=== PATIENT | female | born 1980 | race Caucasian/White ===

== ENCOUNTER 2019-07-16 13:17 | Emergency (ER) | payer BC, OTHER ==
[2019-07-16 14:35] LABS: Urine Blood NEGATIVE (NEG); Urine Glucose NEGATIVE (NEG); Urine Protein 1+ (NEG); Urine Specific Gravity 1.025 (1.005-1.030); Urine pH 5.5 (5.0-7.0)
[2019-07-16 14:42] LABS: Absolute Lymphocytes (CBC) 1.9 K/uL (0.7-4.9); Basophils % 0.6 % (0-1.3); Hematocrit 36.9 % (36.0-45.0); Lymphocytes % 40.1 % (15.3-44.8); MPV 8.4 fL (7.6-11.3); RBC Red Blood Cell Count 4.65 M/uL (3.86-4.86)
[2019-07-16 14:50] LABS: BUN Blood Urea Nitrogen 13 mg/dL (7-18); Bicarbonate 26 mmol/L (21-32); Glucose Level 95 mg/dL (74-106); Potassium 3.3 mmol/L (3.5-5.1); Sodium Level 139 mmol/L (136-145)
--- NOTE | 2019-07-16 14:59 | ER ---
Nurse's Notes [facility] Name: Radha Olsen Age: 39 yrs Sex: Female : 1980 Arrival Date: 07/16/2019 Time: 13:18 Bed 17 Private MD: JASON CASTILLO Diagnosis: Essential (primary) hypertension Presentation: 07/15 13:27 Chief complaint: Patient states: HTN WITH NO H/O HTN. Coronavirus screen: Proceed with bp normal triage. Ebola Screen: No symptoms or risks identified at this time. Initial Sepsis Screen: Does the patient meet any 2 criteria? No. Patient's initial sepsis screen is negative. Does the patient have a suspected source of infection? No. Patient's initial sepsis screen is negative. Risk Assessment: Do you want to hurt yourself or someone else? Patient reports no desire to harm self or others. Onset of symptoms was July 15, 2019. 13:27 Method Of Arrival: Ambulatory bp 13:27 Acuity: ADRIANNA 4 bp Triage Assessment: 13:30 General: Appears in no apparent distress. comfortable, Behavior is cooperative, bp appropriate for age, anxious. Pain: Denies pain. EENT: No deficits noted. Neuro: No deficits noted. Cardiovascular: No deficits noted. Respiratory: No deficits noted. GI: No signs and/or symptoms were reported involving the gastrointestinal system. : No signs and/or symptoms were reported regarding the genitourinary system. Derm: No deficits noted. Musculoskeletal: No deficits noted. Historical: - Allergies: 13:35 No Known Allergies; bp - Home Meds: 13:35 CONTROL PILLS [Active]; bp - PMHx: 13:35 PCOS; Anemia; bp - PSHx: 13:35 ; bp - Immunization history:: Adult Immunizations up to date. - Social history:: Smoking status: Patient denies any tobacco usage or history of. Screenin:30 Abuse screen: Denies threats or abuse. Denies injuries from another. Nutritional bp screening: No deficits noted. Tuberculosis screening: No symptoms or risk factors identified. Fall Risk None identified. Assessment: 13:30 General: SEE TRIAGE NOTE. bp 14:30 Reassessment: ALL CURRENT ORDERS COMPLETED. DISPO PENDING. bp 15:04 Reassessment: PT D/C HOME AMBULATORY, DX WITH HTN. bp Vital Signs: 13:27 BP 182 / 95 LA (auto/reg); Pulse 88; Resp 18; Temp 98.4(TE); Pulse Ox 98% on R/A; jp3 Weight 92.53 kg (R); Height 5 ft. 7 in. (170.18 cm) (R); Pain 3/10; 14:30 BP 138 / 93; Pulse 76; Resp 16; Pulse Ox 97% ; bp 15:05 BP 141 / 89; Pulse 80; Resp 16; Pulse Ox 98% ; bp 13:27 Body Mass Index 31.95 (92.53 kg, 170.18 cm) jp3 ED Course: 13:18 Patient arrived in ED. am2 13:18 JASON CASTILLO is Private Physician. am2 13:23 Eliud Sanz, MARC is Primary Nurse. bp 13:24 Martin Martínez PA is PHCP. jr8 13:24 Branden Kahn DO is Attending Physician. jr8 13:28 Patient has correct armband on for positive identification. Bed in low position. Call 3 light in reach. Side rails up X 1. Door closed. Verbal reassurance given. Pulse ox on. NIBP on. 13:28 Patient maintains SpO2 saturation greater than 95% on room air. jp3 13:30 No provider procedures requiring assistance completed. Patient did not have IV access bp during this emergency room visit. 13:34 Triage completed. bp 14:00 Urine collected: clean catch specimen, clear, brady colored. jp3 14:10 EKG done, by vehicle modification technician. reviewed by Martin ACOSTA. jp3 14:15 Initial lab(s) drawn, by la, sent to lab. jp3 14:21 Basic Metabolic Panel Sent. jp3 14:21 CBC with Diff Sent. jp3 15:06 Arm band placed on. bp Administered Medications: No medications were administered Outcome: 14:58 Discharge ordered by . jr8 15:06 Discharged to home ambulatory. bp 15:06 Condition: stable 15:06 Discharge instructions given to patient, Instructed on discharge instructions, follow up and referral plans. medication usage, Demonstrated understanding of instructions, follow-up care, medications, Prescriptions given X 1. 15:07 Patient left the ED. bp Signatures: Martin Martínez PA PA jr8 Leona Stark am2 Eliud Sanz, RN RN bp Roger Isabel jp3
--- NOTE | 2019-07-16 14:59 | EDPHYS ---
Physician Documentation [facility] Name: Radha Olsen Age: 39 yrs Sex: Female : 1980 Arrival Date: 07/16/2019 Time: 13:18 Bed 17 Private MD: JASON CASTILLO ED Physician Branden Kahn HPI: 07/15 14:18 This 39 yrs old Female presents to ER via Ambulatory with complaints of High jr8 Blood Pressure. 14:18 The patient has elevated blood pressure and discovered this at work. Onset: The jr8 symptoms/episode began/occurred acutely, today. Modifying factors: The symptoms are alleviated by remaining still. Associated signs and symptoms: Pertinent positives: headache. Severity of symptoms: At its worst the blood pressure was moderate, in the emergency department the blood pressure is unchanged. The patient has not experienced similar symptoms in the past. The patient has not recently seen a physician. Patient stated that she was having headache that started yesterday. Different then previous ones in past. Stated that she continued to have one today. While at work had BP checked and was in the 180s. Came to ED for evaluation at that time . Historical: - Allergies: 13:35 No Known Allergies; bp - Home Meds: 13:35 CONTROL PILLS [Active]; bp - PMHx: 13:35 PCOS; Anemia; bp - PSHx: 13:35 ; bp - Immunization history:: Adult Immunizations up to date. - Social history:: Smoking status: Patient denies any tobacco usage or history of. ROS: 14:18 Eyes: Negative for injury, pain, redness, and discharge, ENT: Negative for injury, jr8 pain, and discharge, Neck: Negative for injury, pain, and swelling, Cardiovascular: Negative for chest pain, palpitations, and edema, Respiratory: Negative for shortness of breath, cough, wheezing, and pleuritic chest pain, Abdomen/GI: Negative for abdominal pain, nausea, vomiting, diarrhea, and constipation, Back: Negative for injury and pain, MS/Extremity: Negative for injury and deformity, Skin: Negative for injury, rash, and discoloration. 14:18 Neuro: Positive for headache. Exam: 14:18 Eyes: Pupils equal round and reactive to light, extra-ocular motions intact. Lids and jr8 lashes normal. Conjunctiva and sclera are non-icteric and not injected. Cornea within normal limits. Periorbital areas with no swelling, redness, or edema. ENT: Nares patent. No nasal discharge, no septal abnormalities noted. Tympanic membranes are normal and external auditory canals are clear. Oropharynx with no redness, swelling, or masses, exudates, or evidence of obstruction, uvula midline. Mucous membranes moist. Neck: Trachea midline, no thyromegaly or masses palpated, and no cervical lymphadenopathy. Supple, full range of motion without nuchal rigidity, or vertebral point tenderness. No Meningismus. Cardiovascular: Regular rate and rhythm with a normal S1 and S2. No gallops, murmurs, or rubs. Normal PMI, no JVD. No pulse deficits. Respiratory: Lungs have equal breath sounds bilaterally, clear to auscultation and percussion. No rales, rhonchi or wheezes noted. No increased work of breathing, no retractions or nasal flaring. Abdomen/GI: Soft, non-tender, with normal bowel sounds. No distension or tympany. No guarding or rebound. No evidence of tenderness throughout. Back: No spinal tenderness. No costovertebral tenderness. Full range of motion. Skin: Warm, dry with normal turgor. Normal color with no rashes, no lesions, and no evidence of cellulitis. MS/ Extremity: Pulses equal, no cyanosis. Neurovascular intact. Full, normal range of motion. Neuro: Awake and alert, GCS 15, oriented to person, place, time, and situation. Cranial nerves II-XII grossly intact. Motor strength 5/5 in all extremities. Sensory grossly intact. Cerebellar exam normal. Normal gait. 14:18 ECG was reviewed by the Attending Physician. Vital Signs: 13:27 BP 182 / 95 LA (auto/reg); Pulse 88; Resp 18; Temp 98.4(TE); Pulse Ox 98% on R/A; jp3 Weight 92.53 kg (R); Height 5 ft. 7 in. (170.18 cm) (R); Pain 3/10; 14:30 BP 138 / 93; Pulse 76; Resp 16; Pulse Ox 97% ; bp 15:05 BP 141 / 89; Pulse 80; Resp 16; Pulse Ox 98% ; bp 13:27 Body Mass Index 31.95 (92.53 kg, 170.18 cm) jp3 MDM: 13:31 Patient medically screened. jr8 14:58 Data reviewed: vital signs, nurses notes, lab test result(s), EKG, and as a result, I jr8 will discharge patient. Data interpreted: Pulse oximetry: on room air is 98 %. Interpretation: normal. Counseling: I had a detailed discussion with the patient and/or guardian regarding: the historical points, exam findings, and any diagnostic results supporting the discharge/admit diagnosis, lab results, the need for outpatient follow up, a family practitioner, to return to the emergency department if symptoms worsen or persist or if there are any questions or concerns that arise at home. 07/15 14:10 Order name: CBC with Diff; Complete Time: 14:58 [email or web address]] 07/15 14:10 Order name: Basic Metabolic Panel; Complete Time: 14:58 [facility] [email or web address] 07/15 13:43 Order name: EKG - Nurse/Tech; Complete Time: 14:21 [facility] [email or web address] 07/15 13:43 Order name: EKG; Complete Time: 13:44 [facility] [email or web address] 07/15 14:16 Order name: Urine Dipstick--Ancillary (enter results); Complete Time: 14:36 07/15 14:16 Order name: Urine --Ancillary (enter results); Complete Time: 14:36 eb 07/15 13:43 Order name: Urine Test (obtain specimen); Complete Time: 14:21 8 07/15 13:43 Order name: Urine Dipstick-Ancillary (obtain specimen); Complete Time: 14:21 EC:18 Rate is 77 beats/min. Rhythm is regular, Normal Sinus Rhythm. QRS [place] is Normal. [place] jr8 interval is normal at 162 msec. QRS interval is normal at 90 msec. QT interval is prolonged at 491 msec. No Q waves. T waves are Normal. No ST changes noted. Clinical impression: No evidence of ischemia and QT Prolongation. Interpreted by me. Reviewed by me. Administered Medications: No medications were administered Disposition: 15:27 Co-signature as Attending Physician, Branden Kahn DO I agree with the assessment and ms3 plan of care. Attestation: The patient's history, exam findings, diagnostics, and a summary of any interventions or procedures was reviewed in detail with Martin ACOSTA. Disposition: 07/16/19 14:58 Discharged to Home. Impression: Essential (primary) hypertension. - Condition is Stable. - Discharge Instructions: Hypertension. - Prescriptions for Lisinopril 10 mg Oral Tablet - take 1 tablet by ORAL route once daily; 20 tablet. - Medication Reconciliation Form, Thank You Letter, Antibiotic Education, Prescription Opioid Use form. - Follow up: Private Physician; When: 5 - 6 days; Reason: Recheck today's complaints, Continuance of care, Re-evaluation by your physician. - Problem is new. - Symptoms have improved. Signatures: Dispatcher [employer] EDMS Martin Martínez PA PA jr8 Eliud Sanz, RN RN bp Branden Kahn DO DO ms3 Corrections: (The following items were deleted from the chart) 15:07 14:58 07/16/2019 14:58 Discharged to Home. Impression: Essential (primary) bp hypertension. Condition is Stable. Forms are Medication Reconciliation Form, Thank You Letter, Antibiotic Education, Prescription Opioid Use. Follow up: Private Physician; When: 5 - 6 days; Reason: Recheck today's complaints, Continuance of care, Re-evaluation by your physician. Problem is new. Symptoms have improved. jr8
[2019-07-16 15:18] VITALS: TEMP 98.4
[2019-07-16 15:21] VITALS: BP 141/89; O2SAT 98
--- NOTE | 2019-07-19 20:17 | EKG ---
Test Date: 2019-07-16 Test Time: 14:08:54 Scrap Picker: DEVIN MEASUREMENT RESULTS: Intervals: Rate: 77 AK: 162 QRSD: 90 QT: 434 QTc: 491 [place]: P: 35 AK: 162 QRS: 53 T: 33 INTERPRETIVE STATEMENTS: Normal sinus rhythm Prolonged QT Abnormal ECG No previous ECG available for comparison Electronically Signed On 07-19-19 20:11:37 CDT by Vaibhav Engle
== END 2019-07-16 15:07 | disposition home or self-care (01) ==
LOC: ER 13:17
DX: I10 Essential (primary) hypertension (principal)
CPT/HCPCS: 36415; 80048; 81003; 81025; 85025; 93005; 99284